=== PATIENT | female | born 1995 | race African-American/Black ===

== ENCOUNTER 2024-12-18 15:22 | Emergency (ER) | payer OTHER ==
[~2024-12-18] VITALS: Ht 165.1 cm; Wt 100.0 kg
[2024-12-18 15:30] VITALS: BP 108/65; PULSE 85; RESP 18; TEMP 98.5; O2SAT 98
== END 2024-12-18 18:47 | disposition left against medical advice (07) ==
LOC: EMS 15:22
DX: M25.562 Pain in left knee (principal); Z53.21 Procedure and treatment not carried out due to patient leaving prior to being seen by health care provider
CPT/HCPCS: 73562-TC